=== PATIENT | male | born 1980 | race Two or more races ===

== ENCOUNTER → 2019-08-04 | Outpatient (CLI) | payer OTHER | END | disposition home or self-care (01) | LOC: LAB 10:04 | PROVIDERS: ATTEND Nurse Practitioner Family | DX: Z03.818 Encounter for observation for suspected exposure to other biological agents ruled out (principal) ==

== ENCOUNTER 2024-06-03 16:21 | Emergency (ER) | payer BC, OTHER ==
[~2024-06-03] VITALS: Ht 182.9 cm; Wt 82.0 kg
[~2024-06-03 16:21] MED LIST: EPINEPHrine HCL 1 MG/1 ML AMP ONE; methylPREDNISolone SOD SUCC 125 MG/2 ML VL ONE
[2024-06-03 16:30] VITALS: PULSE 133; RESP 20; O2SAT 96
[2024-06-03] MEDS: EPINEPHrine HCL 1 MG/1 ML AMP IM ONE (16:30)
[2024-06-03 16:32] VITALS: TEMP 98.8
[2024-06-03] MEDS: methylPREDNISolone SOD SUCC 125 MG/2 ML VL IV ONE (16:41)
[2024-06-03] MEDS: FAMOTIDINE (10MG/ML) 2ML VL IV ONE (16:41)
[2024-06-03] MEDS: SODIUM CHLORIDE 0.9% 1,000 ML IV ONE (16:42)
[2024-06-03 18:00] VITALS: BP 121/78; PULSE 95; RESP 22; O2SAT 99
[2024-06-03] MEDS ORDERED: PRED20TA2 PO ×2 (18:05→18:50)
[2024-06-03] MEDS ORDERED: EPIN0.1I11 IJ ×2 (18:05→18:50)
--- NOTE | 2024-06-03 18:05 | ED.PDOC ---
History of Present Illness HPI Comments 43M previously healthy presents with an acute allergic reaction that began just prior to arrival. Patient reports he had a dose of Mounjaro today. He developed an erythematous an eczematous rash across most of his body. He also had GI upset today. He took 50mg of benadryl prior to coming in. He has not had any prior allergic reactions. Chief Complaint: Allergic Reaction Time Seen by MD: 16:27 Allergies: Coded Allergies: NO KNOWN ALLERGIES (Unverified , 06/03/24) Home Meds Active Scripts Prednisone (Prednisone) 20 Mg Tab, 40 MG PO DAILY for 4 Days, #8 MG Prov:NADYA MIRANDA E PRINCIPAL CONSULTANT 06/03/24 Epinephrine (Anaphylaxis) (Auvi-Q) 0.1 Mg/0.1 Ml Inj, 0.1 MG IJ O PRN for 1 Day, #1 INJ Prov:NADYA MIRANDA PRINCIPAL CONSULTANT 06/03/24 Mode of Arrival: Ambulatory All Other Systems: Reviewed and Negative Physical Exam General Appearance: Mild Distress HEENT: Pharynx Normal Neck: Normal Inspection Respiratory: No Respiratory Distress Cardiovascular: Tachycardia Breast Exam: Deferred Gastrointestinal: NOT DONE Genitalia: Deferred Pelvic: Deferred Rectal: Deferred Extremities: Normal range of motion Neurologic: No Motor Deficits Cerebellar Function: NOT DONE Reflexes: NOT DONE Skin: Rash Lymphatic: NOT DONE Was a procedure done? Was a procedure done?: No Differential Dx Considerations may include: Anaphylaxis, drug reaction X-Ray, Labs, Meds, VS Vital Signs Date Time Temp Pulse Resp B/P (MAP) Pulse Ox O2 Delivery O2 Flow Rate FiO2 06/03/24 18:00 95 22 121/78 (92) 99 06/03/24 17:00 86 20 134/87 (103) 99 06/03/24 16:32 98.8 130 22 141/105 (117) 99 98.8 06/03/24 16:30 133 20 96 Room Air* 0 21 06/03/24 16:30 97.6 133 20 141/105 (117) 96 97.6 06/03/24 16:30 20 96 Room Air* 0 21 Current Medications Medications (Trade) Dose Ordered Sig/Keith Route Start Time Stop Time Status Last Admin Methylprednisolone Sodium Succinate (Solu Medrol) 125 mg ONCE ONCE IV 06/03/24 16:30 06/03/24 16:33 DC 06/03/24 16:41 Famotidine (Pepcid Injection) 20 mg ONCE ONCE IV 06/03/24 16:30 06/03/24 16:33 DC 06/03/24 16:41 Epinephrine HCl 0.3 mg ONCE ONCE IM 06/03/24 16:30 06/03/24 16:33 DC 06/03/24 16:30 Sodium Chloride 1,000 ml @ 1,000 mls/hr Q1H ONCE IV 06/03/24 16:45 06/03/24 17:44 DC 06/03/24 16:42 Time of 1ST Reevaluation: 20:17 Reevaluation 1ST: Improved Patient Education/Counseling: Diagnosis, Treatment Family Education/Counseling: No Family Present Departure 1 Departure Time of Disposition: 18:04 (Patient likely with a allergic reaction. Patient is feeling significantly better. We will discharge patient home with outpatient follow up) Impression: Primary Impression: Allergic reaction Qualified Codes: T78.40XA - Allergy, unspecified, initial encounter Disposition: HOME / SELF CARE / HOMELESS Condition: Stable Additional Instructions: You had an allergic reaction. You received medications in the ER. You were prescribed steroids and an epinephrine pain. Please use as directed. You should follow up with your regular doctor within one week to ensure you are doing better. You may benefit from an appointment with an [facility]. If your symptoms worsen, or you have any other concerns then please return to the ER. e-Prescriptions Prednisone (Prednisone) 20 Mg Tab 40 MG PO DAILY for 4 Days, #8 MG Prov: ANDYA MIRANDA PRINCIPAL CONSULTANT 06/03/24 Epinephrine (Anaphylaxis) (Auvi-Q) 0.1 Mg/0.1 Ml Inj 0.1 MG IJ O PRN for 1 Day, #1 INJ Prov: NADYA MIRANDA PRINCIPAL CONSULTANT 06/03/24 Discharged With: Self Critical Care Note Critical Care Time?: No Stability Stability form required: No Heart Score Heart Score: Heart Score Response (Comments) Value History N/A 0 EKG N/A 0 Age N/A 0 Risk Factors N/A 0 Troponin N/A 0 Total 0 LIONEL ROSAS MD Jun 03, 2024 18:05
== END 2024-06-03 18:09 | disposition home or self-care (01) ==
LOC: ER 16:21 → EEVIPCON 16:21 → ER 18:09
DX: T78.49XA Other allergy, initial encounter (principal); X58.XXXA Exposure to other specified factors, initial encounter
CPT/HCPCS: 96361; 96372; 96374; 96375; 99284; J0171; J2919; J3490; J7030